=== PATIENT | male | born 1995 | race Caucasian/White ===

== ENCOUNTER 2018-04-16 01:34 | Emergency (ER) | payer SELFPAY ==
[~2018-04-16] VITALS: Ht 172.7 cm; Wt 67.1 kg
[2018-04-16] MEDS ORDERED: diphenhydrAMINE HCL 50 MG/ML VIAL ONE (01:59)
[2018-04-16] MEDS ORDERED: diphenhydrAMINE HCL 50 MG/ML VIAL IM ONE (02:00)
[2018-04-16] MEDS ORDERED: PROPRANOLOL LA 60 MG CAP.SA.24H PO SCH (02:00)
[2018-04-16] MEDS ORDERED: PROPRANOLOL HCL 10 MG TABLET ONE (02:24)
[2018-04-16 02:37] VITALS: BP 163/96
== END 2018-04-16 03:25 | disposition home or self-care (01) ==
LOC: ER 01:37
DX: Z00.00 Encounter for general adult medical examination without abnormal findings (principal); F20.9 Schizophrenia, unspecified; F41.9 Anxiety disorder, unspecified
CPT/HCPCS: 96372; 99283; A4606; J1200; Z7610